=== PATIENT | female | born 1985 | race African-American/Black ===

== ENCOUNTER 2019-05-27 12:06 | Emergency (ER) | payer OTHER ==
[~2019-05-27] VITALS: Ht 162.6 cm; Wt 63.5 kg
[~2019-05-27 12:06] MED LIST: ALEVE220 MG; ATIVAN0.5 MG PO; CEFTIN 250 MG250 MG PO; GRALISE300 MG PO; IBUPROFEN 600600 M1 PO; IBUPROFEN 800800 MG PO; LO LOESTRIN FE1 EACH PO; LORTAB 5 MG/5001 TA1 PO; MULTIVITAMINS PO; NEURONTIN 300M300 M2 PO; NOHOMEMEDICATIONS; NORCO 5-325 TA1 EACH PO; PEPCID20 MG PO; PERCOCET 5-3251 EACH PO; PREDNISONE 20 M20 MG PO; TIZANIDINE HCL4 MG PO; TYLENOL325 MG PO; VISTARIL 25 MG25 M1 PO; XANAX1 MG PO; ZOFRAN ODT4 MG PO
[2019-05-27] MEDS ORDERED: PROAIR HFA8.5 GM INH (13:33)
[2019-05-27] MEDS ORDERED: TESSALON PERLE100 MG PO (13:33)
[2019-05-27] MEDS ORDERED: PREDNISONE 20 M20 MG PO (13:33)
[2019-05-27 13:45] VITALS: BP 124/76
== END 2019-05-27 13:45 | disposition home or self-care (01) ==
LOC: ER 12:06
PROVIDERS: Emergency Medicine
DX: J40 Bronchitis, not specified as acute or chronic (principal); F17.210 Nicotine dependence, cigarettes, uncomplicated